=== PATIENT | male | born 1980 | race Caucasian/White ===

== ENCOUNTER 2021-03-13 16:51 | Emergency (ER) | payer MEDICAID ==
[2021-03-13] MEDS ORDERED: ORPHENADRINE CITRATE 30 MG/ML ML ONE (17:39)
[2021-03-13] MEDS ORDERED: LIDOCAINE 5% TOPICAL PATCH TP ONE (17:39)
[2021-03-13 18:03] LABS: CREATININE 0.8 mg/dL (0.5-1.5)
== END 2021-03-13 19:38 | disposition home or self-care (01) ==
LOC: EDH 16:51
DX: M62.838 Other muscle spasm (principal); E11.9 Type 2 diabetes mellitus without complications; Z21 Asymptomatic human immunodeficiency virus [HIV] infection status
CPT/HCPCS: 36415; 80048; 96372; 99283; J2360

== ENCOUNTER → 2021-04-09 | Outpatient (CLI) | payer MEDICARE | END | disposition home or self-care (01) | LOC: WHH 08:43 | PROVIDERS: ATTEND Family Medicine | DX: E11.621 Type 2 diabetes mellitus with foot ulcer (principal); L97.521 Non-pressure chronic ulcer of other part of left foot limited to breakdown of skin; E11.3559 Type 2 diabetes mellitus with stable proliferative diabetic retinopathy, unspecified eye; B20 Human immunodeficiency virus [HIV] disease; E78.5 Hyperlipidemia, unspecified; F79 Unspecified intellectual disabilities | CPT/HCPCS: 11102; A6234 ==

== ENCOUNTER 2021-08-29 23:50 | Emergency (ER) | payer MEDICARE ==
[~2021-08-29] VITALS: Ht 172.7 cm; Wt 112.0 kg
[2021-08-30] MEDS ORDERED: KETOROLAC 60 MG VIAL (30MG/ML) ONE (00:52)
[2021-08-30] MEDS ORDERED: KETOROLAC 60 MG VIAL (30MG/ML) IM ONE (01:00)
[2021-08-30 01:09] VITALS: BP 134/63
[2021-08-30] MEDS ORDERED: NAPR-1180 PO (01:15)
== END 2021-08-30 01:22 | disposition home or self-care (01) ==
LOC: EDH 23:50
DX: M79.622 Pain in left upper arm (principal); M79.621 Pain in right upper arm; E11.9 Type 2 diabetes mellitus without complications
CPT/HCPCS: 96372; 99283; J1885

== ENCOUNTER 2023-01-27 23:33 | Emergency (ER) | payer OTHER, MEDICARE ==
[~2023-01-27] VITALS: Ht 167.6 cm; Wt 124.7 kg
[~2023-01-27 23:33] MED LIST: NAPR-1180 PO
[2023-01-27 23:35] VITALS: BP 145/77
== END 2023-01-28 03:43 | disposition left against medical advice (07) ==
LOC: EDH 23:33
DX: M79.675 Pain in left toe(s) (principal); Z53.21 Procedure and treatment not carried out due to patient leaving prior to being seen by health care provider
CPT/HCPCS: 99281

== ENCOUNTER → 2023-12-08 | Outpatient (CLI) | payer OTHER, MEDICARE ==
[2023-12-08 14:56] LABS: BASOPHILS # (AUTO) 0.04 K/uL (0.00-0.20); BASOPHILS % (AUTO) 0.7 % (0.0-5.0); EOSINOPHILS # (AUTO) 0.09 K/uL (0.00-0.70); EOSINOPHILS % (AUTO) 1.5 % (0.0-8.0); HEMATOCRIT 39.2 % (42-54); IMMATURE GRANULOCYTE ABSOLUTE 0.02 K/uL (0-1); LYMPHOCYTES # (AUTO) 1.5 K/uL (1.0-4.8); LYMPHOCYTES % (AUTO) 23.9 % (21.0-51.0); MEAN CORPUSCULAR HEMOGLOBIN 30.2 pg (27.0-33.0); MEAN CORPUSCULAR HGB CONC 33.4 g/dL (32.0-36.0); MEAN CORPUSCULAR VOLUME 90.3 fL (79-99); MONOCYTES # (AUTO) 0.3 K/uL (0.1-1.0); MONOCYTES % (AUTO) 5.6 % (3.0-13.0); NEUTROPHILS # (AUTO) 4.2 K/uL (1.8-7.7); PLATELET COUNT (AUTO) 195 K/uL (130-400); RED BLOOD CELL COUNT(AUTO) 4.34 MIL/uL (4.50-6.20); RED CELL DISTRIBUTION WIDTH 13.8 % (11.0-15.5); WHITE BLOOD COUNT (AUTO) 6.1 K/uL (4.8-10.8)
[2023-12-08 15:06] LABS: ALBUMIN 3.4 g/dL (3.5-5.0); BILIRUBIN,TOTAL 0.2 mg/dL (0.2-1.0); CREATININE 0.7 mg/dL (0.5-1.5); POTASSIUM 3.9 mmol/L (3.5-5.1); TOTAL PROTEIN, SERUM 6.8 g/dL (6.0-8.3)
[2023-12-08 16:34] LABS: ERYTHROCYTE SEDIMENTATION RATE 6 MM/HR (0-15)
== END | disposition home or self-care (01) ==
LOC: RAH 13:09
PROVIDERS: ATTEND Internal Medicine
DX: I80.251 Phlebitis and thrombophlebitis of right calf muscular vein (principal); I87.8 Other specified disorders of veins; L03.115 Cellulitis of right lower limb; E11.628 Type 2 diabetes mellitus with other skin complications
CPT/HCPCS: 36415; 80053; 85025; 85378; 85651; 86140; 93925; 93971

== ENCOUNTER 2024-11-19 01:35 | Emergency (ER) | payer OTHER, MEDICARE ==
[~2024-11-19] VITALS: Ht 167.6 cm; Wt 119.4 kg
--- NOTE | 2024-11-19 02:19 | ERN ---
ED Note History of Present Illness Stated Complaint: LEFT FOOT PAIN Chief Complaint: FOOT INJURY/PAIN Time Seen by MD: 01:45 Time Seen by Midlevel: 01:50 Dictation: 44-year-old male with a history of HIV and diabetes coming in complaining of left heel pain onset two weeks ago. Patient denies any trauma to the foot denies any open wounds/ulcers. Patient states he was seen at [facility] last week and was given meloxicam but has run out of pills. Allergies: Coded Allergies: No Known Drug Allergies (Verified Allergy, Unknown, 03/03/17) Home Meds Active Scripts Naproxen (Naprosyn) 500 Mg Tablet, 500 MG PO BIDPC, #30 TAB Prov:WILBUR WEAVER MD 08/30/21 Past Medical History Past Medical History: Diabetes-Type II, HIV Surgical History: None Family History: Negative Social History: Negative Review of System Dictation Constitutional: Negative for fever,chills, and weight loss Eyes: Negative for injury, pain,redness, and discharge ENT: Negative for injury,pain or swelling Cardiovascular: Negative for chest pain, palpitations, and edema Respiratory: Negative for shortness of breath, cough, and wheezing, Abdomen/GI: Negative for abdominal pain, nausea, vomiting, diarrhea, and constipation Back: Negative for injury and pain : Negative for injury, bleeding and discharge MS/Extremity: Negative for injury and deformity complaining of left heel pain Skin: Negative for rash, and discoloration Neuro: Negative for headache, weakness, numbness, tingling, and seizure Psych: Negative for suicide ideation, homicidal ideation, and hallucinations Review of Systems: was completed Initial Vital Sign VS Vital Signs Date Time Temp Pulse Resp B/P (MAP) Pulse Ox O2 Delivery O2 Flow Rate FiO2 11/19/24 01:36 97.0 79 18 146/82 97 Room Air Physical Exam Dictation General: awake, alert, NAD Head/Face: Normocephalic, atraumatic Eyes: PERRL, EOMI, vision at baseline ENT: oral cavity clear, TMs clear, no signs of infection Neck: Trachea midline, supple, no nuchal rigidity Cardiovascular: RRR, normal S1/S2, No MRGs, no JVD Respiratory: CTAB, no respiratory distress, No rales or wheezes Abdomen: Soft, non-tender, non-distended, normal bowel sounds, no guarding or rebound. Skin: Warm, dry, normal turgor, no rash MS/Extremity: Pulses equal, no cyanosis, neurovascular intact, FROM pain on palpation around the heel area, no open wounds Neuro: COAx4, GCS 15, strength 5/5, CN 2-12 intact, normal cerebellar exam, normal gait, Psych: Normal behavior, mood, and affect normal ED Course ED Course Orders Procedure Category Date Status Time Foot Comp 3+Vws Lt RAD 11/19/24 Taken 01:39 Hydrocodone/Apap PHA 11/19/24 Logged 5/325 ([place] 5/325mg) 02:17 Ketorolac PHA 11/19/24 Logged Tromethamine 15mg/Ml 02:17 Current Medications Medications (Trade) Dose Ordered Sig/Frank Route PRN Reason Start Time Stop Time Status Last Admin Dose Admin Acetaminophen/ Hydrocodone Bitart (NORco 5/325MG) 1 tab ONCE STAT PO 11/19/24 02:17 11/19/24 02:18 UNV Ketorolac Tromethamine (toRADol) 15 mg ONCE STAT IM 11/19/24 02:17 11/19/24 02:18 UNV Vital Signs Date Time Temp Pulse Resp B/P (MAP) Pulse Ox O2 Delivery O2 Flow Rate FiO2 11/19/24 01:36 97.0 79 18 146/82 97 Room Air Medical Decision Making MDM MDM: 44-year-old male with a history of HIV and diabetes coming in complaining of left heel pain onset two weeks ago. Patient denies any trauma to the foot denies any open wounds/ulcers. Patient states he was seen at [facility] last week and was given meloxicam but has run out of pills. X-ray of the left foot reveals a heel spur. X-ray left foot shows heel spur, interpreted by me Discussed findings with the patient. Educated the x-ray showed a heel spur. Because in the pain along with some plantar fasciitis. Educated that he needs to have orthopedic shoes with more cushion or better soles, elevate and rest and take NSAIDs. Also educated sees PCP for a possible filtration plant mechanic referral. Differential diagnosis: Cellulitis, plantar fasciitis, heel spur Rationale: Tests considered and ordered secondary to shared decision making include: Previous outside records reviewed: Old ER visits. Risk of complication and/or morbidity or mortality of patient management: None Medications-Per medication reconciliation Need for hospitalization: Patient does not meet criteria for hospitalization. Need for emergency major/minor surgery: No There are no social concerns with this patient. Prescription drug management Prescriptions will include symptomatic care Patient's prior external medical records from other ER visits were reviewed by me as indicated. Prior testing and results from previous visits were reviewed. Prior tests were taken into account with medical decision making and resource utilization, independent historian/historians were used to obtain complete medical history. I independently interpreted the test that were performed, results were reviewed by me and considered findings on radiology if ordered. Medical management and examination interpretation discussions were had by me with other qualified healthcare professionals as indicated for the patient's care. DX & DISP Disposition: Transfer Departure Impression: Primary Impression: Heel spur Condition: Stable Scripts Naproxen (Naproxen) 500 Mg Tablet 1 TAB PO BID for pain for 7 Days, #14 TAB 0 Refills Prov: PJ DUARTE NP 11/19/24 Additional Instructions: Rest and elevate your foot. Get a better shoes so. You can add Tylenol to the naproxen that I will prescribe. Please follow up with your PCP as you might need a referral to a filtration plant mechanic. Referrals: JANET SINGH MD (PCP) Time of Disposition: 02:22 I have reviewed the case, and I agree with, Diagnosis and Plan PJ DUARTE NP Nov 19, 2024 02:19
[2024-11-19] MEDS ORDERED: NAPR-1023 PO (02:24)
[2024-11-19] MEDS: ketOROlac 15MG/ML VIAL (15MG/ML) IM STA (02:49)
[2024-11-19] MEDS: HYDROcodone/APAP 5/325 1 TAB TABLET PO STA (02:49)
[2024-11-19 03:33] VITALS: BP 138/77; PULSE 73; RESP 15; TEMP 97.3; O2SAT 97
--- NOTE | 2024-11-19 08:46 | HMCIMG ---
FOOT COMP 3+VWS LT REASON: PAIN, DENIES INNJURY TECHNIQUE: 3 views were obtained. FINDINGS: There is no evidence of fracture or dislocation. There is no joint effusion. The soft tissues appear unremarkable. There is no evidence of a radiopaque foreign body. There is a heel spur present. IMPRESSION: No acute findings.
== END 2024-11-19 03:33 | disposition home or self-care (01) ==
LOC: EDH 01:35
DX: M77.32 Calcaneal spur, left foot (principal); E11.9 Type 2 diabetes mellitus without complications; Z79.899 Other long term (current) drug therapy
CPT/HCPCS: 99283; 73630; 96372; J1885

== ENCOUNTER 2024-12-30 05:26 | Emergency (ER) | payer MEDICARE ==
[~2024-12-30] VITALS: Ht 167.6 cm; Wt 116.1 kg
[~2024-12-30 05:26] MED LIST changes: +NAPR-1023 PO
--- NOTE | 2024-12-30 06:11 | ERN ---
General Chief Complaint: Congestion Stated Complaint: FLU LIKE SYMTOMS Time Seen by MD: 05:32 Time Seen by Midlevel: 05:32 Source: patient History of Present Illness Initial Comments Patient is a 44-year-old male with a past medical history of HIV presenting to the emergency department with flu-like symptoms started three days ago. The patient was seen at [facility] and discharged home with a prescription for azithromycin, fluticasone spray, and Tessalon Perles. The patient states initially he had gotten better but has now progressively worsened. Denies any fever, chills, or any other symptoms at this time. Allergies: Coded Allergies: No Known Drug Allergies (Verified Allergy, Unknown, 03/03/17) Home Meds Active Scripts Naproxen (Naproxen) 500 Mg Tablet, 1 TAB PO BID for pain for 7 Days, #14 TAB 0 Refills Prov:PJ DUARTE NP 11/19/24 Naproxen (Naprosyn) 500 Mg Tablet, 500 MG PO BIDPC, #30 TAB Prov:WILBUR WEAVER MD 08/30/21 Past Medical History Past Medical History: Diabetes-Type II, HIV Past Surgical History: None Family History Family History: Negative Social History Social History: Negative ROS Dictation CONSTITUTIONAL: Negative except for HPI HEAD/FACE: Negative except for HPI EENT: Negative except for HPI RESPIRATORY: Negative except for HPI GASTROINTESTINAL/ABDOMINAL: Negative except for HPI GENITOURINARY: Negative except for HPI MUSCULOSKELETAL: Negative except for HPI INTEGUMENTARY: Negative except for HPI NEUROLOGICAL/PSYCH: Negative except for HPI HEMATOLOGIC/LYMPHATIC: Negative except for HPI All Systems Negative, Except as noted above. 13 point review of systems assessed and all negative except for above. Physical Exam Physical Exam Dictation Vital Signs reviewed General Appearance: Alert, oriented x 3, no acute distress, well developed, nourished. Head and Face: non-traumatic. Eyes: PERRL, pink conjunctivas, eyelid no trauma, anterior chamber with arcus senilis. Ears: Pinnas intact and no signs of trauma or erythema ear canals clear and no discharge TM no erythema Nose: No discharge, no bleeding. Oropharynx: Mouth normal, tongue pink, pharynx clear,no erythema, tonsils no exudates, no abscesses noted, mucous membrane moist Neck: Supple, non-tender, no thyromegaly, no masses, no JVD, no bruits Breast:Deferred Chest:No tenderness, no crepitus, no paradoxical movement, no retractions Lungs:Clear, well-ventilated, symmetric, no rales, no wheezing, no rhonchi, no stridor, good breath sounds bilaterally Heart: Regular rate, regular rhythm, no murmur, no gallops Vascular: no peripheral edema, Abdomen: Soft, positive bowel sounds, nondistended, no guarding, nontender, no rebound, no masses no hepatomegaly, no splenomegaly, no Melo's sign, no hernias. Rectal: Deferred Genital: Deferred Neurological: Normal speech, motor function intact, sensory function intact Musculoskeletal: Neck nontender, full range of motion, back nontender, full range of motion, Extremities: nontender, full range of motion Skin: Color pink, dry, no turgor, no rash, no lacerations, no abrasions, no contusions. Lymphatic: Deferred Results Laboratory and Microbiology Lab and Micro Result Laboratory Tests Test 12/30/24 05:35 Influenza Type A Antigen Positive For Type A Influenza Type B Antigen Negative For Type B SARS-CoV-2, RNA, NAAT NEGATIVE SARS CoV-2 Group A Streptococcus Rapid negative (NEGATIVE) MDM MDM: Differential diagnosis: Sinusitis, upper respiratory infection, viral syndrome, pneumonia I took over care at 7:00 a.m. pending results. CC: Cough, congestion, body aches x2 days. Historian: Patient Comorbidities: Obesity, HIV, diabetes two, DLD Limitations by social determinants of health: None Differential diagnosis: Pneumonia, flu, viral URI, immunosuppression, other. Vital signs: Stable. Oxygen saturation stable Lung sounds are clear. CXR (independently interpreted by me ): No focal infiltrates or major abnormalities. Patient tested positive for influenza A. Consistent with symptoms. Patient reports me that his CD4 count was checked a couple of months ago, he does not remember that number but he reports that it was within normal limits. He was taking daily HAART medications. Plan: We will discharge with Tamiflu Prescription. He is currently taking azithromycin, we will recommend that he continues with this. He is taking supportive care including ibuprofen and Tessalon. ED Course Orders Procedure Category Date Status Time Chest 1vw RAD 12/30/24 Taken 05:32 Covid Rna Naat LAB 12/30/24 Complete 05:32 Influenza Type A & B, LAB 12/30/24 Complete Rapid 05:32 Rapid (Group A Strep) LAB 12/30/24 Complete 05:32 Vital Signs Date Time Temp Pulse Resp B/P (MAP) Pulse Ox O2 Delivery O2 Flow Rate FiO2 12/30/24 06:04 99.3 85 18 130/70 97 Room Air* 0 21 12/30/24 05:37 98.2 92 16 160/81 97 Room Air 0 DX & DISP Disposition: Discharge Departure Impression: Primary Impression: Influenza A Condition: Stable Scripts Oseltamivir Phosphate (Tamiflu) 75 Mg Cap 1 CAP PO BID for 5 Days, #10 CAP 0 Refills Prov: TOMAS DAVID DO 12/30/24 Additional Instructions: You tested positive for influenza a, or the flu. This is likely causing your symptoms. Your vital signs have been stable in the ER. Your chest x-ray is clear. I prescribed Tamiflu, which is an antiviral medication used for the flu. Take this twice per day for the next five days. Complete entire course of medication. You can continue taking the azithromycin, which is an antibiotic. You can use the ibuprofen every 4 hours as needed for fever or body aches. You can use the benzonatate as needed for cough. Be sure to drink plenty of liquids. An electrolyte solution such as Gatorade or Pedialyte has a good choice. If you do not want to eat whole food, that has okay. Try to eat plenty of fruits and vegetables for a wide array of nutrients. Monitor for any respiratory distress, signs of dehydration, or any other concerning symptom. Return to the emergency department if those develop. Referrals: JANET SINGH MD (PCP) I have reviewed the case, and I agree with, Diagnosis and Plan I performed the substantive portion of the visit. I have reviewed and pers onally made and approve the management plan that is documented in the note by myself or the MEKA. I acknowledge for responsibility for the patient's management plan. DREW RIVERA Dec 30, 2024 06:11 KEMAL BAILEY MD Dec 30, 2024 07:21 TOMAS DAVID DO Dec 30, 2024 07:24
[2024-12-30 06:53] LABS: RAPID GROUP A STREP negative (NEGATIVE)
[2024-12-30 06:56] LABS: SARS-CoV-2, RNA, NAAT NEGATIVE SARS CoV-2 (NEGATIVE)
[2024-12-30 07:01] LABS: INFLUENZA TYPE B Negative For Type B (NEGATIVE)
[2024-12-30 07:05] LABS: INFLUENZA TYPE A Positive For Type A (NEGATIVE)
[2024-12-30] MEDS ORDERED: OSEL75 PO (07:23)
[2024-12-30 07:31] VITALS: BP 124/57; PULSE 83; RESP 18; TEMP 98.7; O2SAT 95
--- NOTE | 2024-12-30 08:32 | HMCIMG ---
CHEST 1VW REASON: cough/sob COMPARISON: 03/05/2017 FINDINGS: Single view of the chest was obtained. Lungs are clear. Heart size is normal. There is no pulmonary vascular congestion. Mediastinum and bony thorax appear unremarkable. IMPRESSION: 1. Normal single view chest x-ray.
== END 2024-12-30 07:47 | disposition home or self-care (01) ==
LOC: EDH 05:26
DX: J10.1 Influenza due to other identified influenza virus with other respiratory manifestations (principal); E11.9 Type 2 diabetes mellitus without complications; E66.9 Obesity, unspecified; Z79.2 Long term (current) use of antibiotics; Z20.822 Contact with and (suspected) exposure to COVID-19
CPT/HCPCS: 71045; 87635; 87804; 87880; 99284